=== PATIENT | male | born 1960 | race Caucasian/White ===

== ENCOUNTER 2016-12-21 07:55 | Day surgery (SDC) | payer OTHER ==
[~2016-12-21] VITALS: Ht 170.2 cm; Wt 74.8 kg
[~2016-12-21 07:55] MED LIST: ALLERCLEAR10 MG PO
--- NOTE | 2016-12-21 09:17 | NUR ---
PT IN GOOD ATTITUDE, HAS FAMILY SUPPORT, HIS IS WITH HIM, SHE IS ALSO IN GOOD ATTITUDE. HE REFUSED PRAYED, BUT WILLING TO TALK A FEW MINUTES.
--- NOTE | 2016-12-21 10:50 | NUR ---
12/21/16 1050 [facility] 1047: SAT 100, O2 REMOVED.
[2016-12-21] MEDS ORDERED: IBUPROFEN600 MG PO (10:55)
[2016-12-21] MEDS ORDERED: MAPAP325 MG PO (10:56)
[2016-12-21] MEDS ORDERED: HYDROCODON-ACE1 EA10 PO (10:56)
--- NOTE | 2017-01-01 10:25 | OR ---
[facility] [address] [place], [place] [address] Signed DATE OF SERVICE: 12/21/2016 PREOPERATIVE DIAGNOSIS: Left small finger 1.5 cm mass (dorsum at 2nd interphalangeal segment). POSTOPERATIVE DIAGNOSIS: Epidermal inclusion cyst of right small finger. PROCEDURE: Excision of finger mass. SURGEON: Andrés Garcia MD. ANESTHESIA: Intravenous sedation (Andry Benson) and local finger block 2 cc of 0.25% Marcaine without epinephrine and Beatrice tourniquet. INDICATION: This 56-year-old white man has noted a small mass in the dorsum of his right small finger which has been increasing in s ize over time. He is self-referred for consideration of excision. The lesion is relatively large, 1.5 to 2 cm in size, and located in the interphalangeal segment of the right small finger on the dorsal aspect. This may represent an epidermal inclusion cys t or an atypical ganglion. Discussed with him the risks of bleeding, infection, nerve injury, recurrence, and other unforeseen complications related to its removal and he wishes to proceed. FINDINGS: A Godfrey block was not necessary really. Exsanguination of the finger with a Beatrice drain and local anesthesia was quite adequate in conjunction with propofol sedation. Complete excision was undertaken. The excised lesion was an epidermal inclusion cyst. Complete excision was accomplished. The wound was closed transversely. DESCRIPTION OF PROCEDURE: The patient was brought to the operating room, was placed in a supine position. He was given intravenous sedation with full cardiopulmonary monitoring with propofol infusion. The right hand and arm were prepared with a chlorhexidine solution and draped sterilely. 2 cc of 0.25% Marcaine with epinephrine was injected in a finger block configuration in the mid finger. A 1-inch Awendaw drain was used to exsanguinate the small finger applying a tourniquet above the lesion. An elliptical incision was made in the central portion of the relatively large lesion and the epidermis was relatively thin. Immediate rupture of epidermal inclusion cyst under pressure was noted. Minimizing the contamination the skin and epidermal inclusion cyst were dissected free using tenotomy scissors from surrounding soft tissue of the finger. Complete excision was Electronically Signed By: ANDRÉS GARCIA MD 01/01/17 1025 PATIENT NAME: MARIA GUADALUPE MEJIA OPERATIVE REPORT DATE OF : 56 PHYSICIAN: ANDRÉS GARCIA MD REPORT #: [id number] REPORT IS CONFIDENTIAL AND NOT TO BE RELEASED WITHOUT AUTHORIZATION [facility] [address] [place], [place] [address] Signed accomplished. Irrigation was undertaken. A small amount of electrocautery with needlepoint electrocautery was used in the base of the wound w here there were blood vessels, although not bleeding or obviously potential for bleeding. The skin was closed with interrupted 5-0 nylon. A Xeroform dressing was applied, as was a tube gauze. The tourniquet was removed showing good hemostasis. Pressure wa s applied to this site. The patient was allowed to emerge from sedation and taken to recovery room in good condition. BLOOD LOSS: Minimal. COMPLICATIONS: None. MD STANTON Cohen/Quinten /[id number] Electronically Signed By: ANDRÉS GARCIA MD 01/01/17 1025 PATIENT NAME: ROBERTOMARIA GUADALUPE MONIK OPERATIVE REPORT DATE OF : 56 PHYSICIAN: ANDRÉS GARCIA MD REPORT #: [id number] REPORT IS CONFIDENTIAL AND NOT TO BE RELEASED WITHOUT AUTHORIZATION
== END 2016-12-21 11:33 | disposition home or self-care (01) ==
LOC: OPS 07:55 → DS 07:55 → OPS 09:30
PROVIDERS: Surgery
PROC: 0HBGXZZ Excision of Left Hand Skin, External Approach (ICD-10-PCS; principal; 2016-12-21 09:30)
DX: L72.0 Epidermal cyst (principal)
CPT/HCPCS: 00400; J0690; J3010; J7120

== ENCOUNTER 2024-08-25 20:22 | Inpatient (IN) | payer MEDICARE ==
[~2024-08-25] VITALS: Ht 170.2 cm; Wt 66.7 kg
[~2024-08-25 20:22] MED LIST changes: +HYDROCODON-ACE1 EA10 PO; +IBUPROFEN600 MG PO; +MAPAP325 MG PO
[2024-08-25 21:11] LABS: BILIRUBIN, URINE NEGATIVE (negative); BLOOD/HGB, URINE SMALL (Negative); KETONE, URINE NEGATIVE (Negative); LEUK ESTERASE, URINE NEGATIVE (negative); NITRITE, URINE NEGATIVE (negative)
[2024-08-25 21:25] LABS: HEMATOCRIT 35.2 % (35.0-50.0); HEMOGLOBIN 12.5 g/dL (12.0-18.0); MCH 30.7 (27-36); MCHC 35.3 g/dl (30-36); MCV 86.8 fl (81-99); PLATELET COUNT 65 K/uL (140-440); RBC 4.06 M/ul (4.3-5.7); RDW 13.7 (10.5-15.0)
[2024-08-25 21:29] LABS: BACTERIA, URINE 1+ /hpf (negative); COLLECTION TYPE, URINE CLEAN CATCH; CRYSTALS, URINE NONE SEEN (0-1+); EPITHELIAL CELLS, URINE SQUAMOUS 1+ /lpf (0-1+); REFLEX CULTURE, URINE No (No)
[2024-08-25 21:43] LABS: BANDS, MANUAL DIFF 6; EOSINOPHILS, MANUAL DIFF 2; LYMPHOCYTES, MANUAL DIFF 31; MONOCYTES, MANUAL DIFF 16; NEUTROPHILS, MANUAL DIFF 45
[2024-08-25 21:46] LABS: ALBUMIN 3.7 g/dL (3.4-5.0); ALBUMIN/GLOBULIN RATIO 1.06 (1.1-2.4); ANION GAP 9.9 (7-21); BILIRUBIN, TOTAL 0.7 mg/dL (0.2-1.0); POTASSIUM 3.9 mmol/L (3.5-5.1); PROTEIN, TOTAL 7.2 g/dL (6.4-8.2); TSH, 3RD GENERATION 4.584 uIU/mL (0.358-3.740)
[2024-08-25] MEDS ORDERED: ZOLEDRONIC AC/MANNITOL/0.9NACL 4 MG/100 ML BAG IV ONE (22:15)
[2024-08-25] MEDS ORDERED: SODIUM CHLORIDE 0.9% 1,000 ML IV PRN (22:15)
[2024-08-25] MEDS ORDERED: ACETAMINOPHEN 325 MG TAB PO PRN (22:30)
[2024-08-25] MEDS ORDERED: ondansetron HCL 4 MG/2 ML VIAL IV PRN (22:30)
[2024-08-25] MEDS ORDERED: SODIUM CHLORIDE 0.9% 1,000 ML IV SCH (22:30)
[2024-08-25] MEDS ORDERED: ZOLEDRONIC ACID/MANNITOL/WATER 5 MG/100 ML BTL ONE (22:32)
[2024-08-25] MEDS ORDERED: ZOLEDRONIC ACID/MANNITOL/WATER 5 MG/100 ML BTL IV ONE (23:00)
[2024-08-25] MEDS ORDERED: MULTI-DAY PLUS1 EAC1 PO (23:11)
[2024-08-25] MEDS ORDERED: MILK OF MA2400 MG/10 PO (23:11)
[2024-08-25] MEDS ORDERED: DULCOLAX STOOL100 M1 PO (23:11)
[2024-08-25] MEDS ORDERED: FAMOTIDINE 20 MG/ 2 ML VIAL IV ONE (23:45)
[2024-08-25 23:56] VITALS: BP 149/83
--- NOTE | 2024-08-26 00:13 | NUR ---
2352 - PT ADMITTED TO ROOM 119 VIA W/C FROM ER. AWAKE, ALERT AND ORINETED, HELPED WITH TRANSFER. COOPERATIVE WITH ADMIT QUESTIONS AND ASSESSMENT, ORIENTED TO ROOM AND PROCEDURES
--- NOTE | 2024-08-26 02:51 | NUR ---
PT RESTING IN BED, SLEEPY BUT ALERT. DENIES PRESENT NEEDS, CALL LIGHT IN REACH AND BED ALARM ACTIVE
--- NOTE | 2024-08-26 04:21 | NUR ---
PT ALERT IN ROOM, REPORTS DIFFICULTY SLEEPING D/T AMBIENT LIGHT AND NOISE. DECLINES OFFER FOR EAR PLUGS/ EYE MASK. REPORTS PAIN IS MINIMAL UNTIL HE MOVES. DECLINES PAIN MEDICATION OR OTHER INTERVENTIONS AT THIS TIME. NO OTHER NEEDS IDENTIFIED. [facility]
[2024-08-26 04:56] VITALS: BP 119/80
[2024-08-26 04:58] VITALS: BP 119/80
--- NOTE | 2024-08-26 05:02 | NUR ---
RESPONDED TO BEEPING IV, VITALS. DECLINES FURTHER NEEDS AT THIS TIME CALL LIGHT IN REACH
[2024-08-26 05:11] LABS: BASOPHILS 0.6 % (0-2); EOSINOPHILS 2.4 % (0-6); HEMATOCRIT 32.7 % (35.0-50.0); HEMOGLOBIN 11.3 g/dL (12.0-18.0); LYMPHOCYTES 25.2 % (24-44); MCH 29.9 (27-36); MCHC 34.6 g/dl (30-36); MCV 86.3 fl (81-99); MONOCYTES 14.5 % (0-12); NEUTROPHILS 57.3 % (39-80); PLATELET COUNT 57 K/uL (140-440); RDW 13.8 (10.5-15.0)
[2024-08-26 05:29] LABS: ALBUMIN 3.1 g/dL (3.4-5.0); ALBUMIN/GLOBULIN RATIO 1.03 (1.1-2.4); ANION GAP 5.8 (7-21); BILIRUBIN, TOTAL 0.6 mg/dL (0.2-1.0); BUN/CREATININE RATIO 10.16 (6.0-28.6); CALCIUM 12.9 mg/dL (8.5-10.1); CREATININE, SERUM 1.87 mg/dL (0.70-1.30); POTASSIUM 3.8 mmol/L (3.5-5.1); PROTEIN, TOTAL 6.1 g/dL (6.4-8.2)
--- NOTE | 2024-08-26 07:09 | NUR ---
VERBAL REPORT RECEIVED FROM TAWNYA ZHAO. PT RESTS IN BED AWAKE AND ALERT. NO REQUESTS AT THIS TIME.
--- NOTE | 2024-08-26 07:12 | NUR ---
medications recoinciled, patient takes no prescription medications
--- NOTE | 2024-08-26 08:25 | NUR ---
PHYSICAL ASSESSMENT COMPLETE. PT SITS UP ON BEDSIDE. EATS BREAKFAST, CALL LIGHT IN REACH, NO REQUESTS AT THIS TIME.
[2024-08-26 10:00] VITALS: BP 116/72
[2024-08-26] MEDS ORDERED: POLYETHYLENE GLYCOL 3350 1 PACKET PO SCH (11:56)
[2024-08-26] MEDS ORDERED: PHARMACY RENAL DOSE ADJUSTMENT 1 DOSE MISC PO SCH (12:00)
[2024-08-26] MEDS ORDERED: ACETAMINOPHEN 325 MG TAB PO PRN (12:00)
[2024-08-26] MEDS ORDERED: ondansetron HCL 4 MG/2 ML VIAL IV PRN (12:00)
[2024-08-26] MEDS ORDERED: bisacodyL 10 MG SUPP PR PRN (12:00)
[2024-08-26 13:14] VITALS: BP 122/65
--- NOTE | 2024-08-26 13:50 | NUR ---
SISTER IN LAW CAME OUT AND SAID THAT THEY FELT THE PT WAS SLURRING HIS WORDS. WENT IN ROOM TO ASSESS. PT AND GIRLFRIEND STATED IT IS WHEN HE IS TIRED AND HAS BEEN HAPPENING FOR A COUPLE OF DAYS. ASSESSED FOR STROKE SYMPTOMS, ALL NEGATIVE. EDUCATED PT ON SYMPTOMS AND TOLD TO CALL IF ANY APPEAR.
--- NOTE | 2024-08-26 16:28 | NUR ---
PT RESTS IN BED, WATCHES TV, VISITOR X1 AT BEDSIDE. PT REPORTS HE IS AMBULATING FREQUENTLY TO VOID. CALL LIGHT IN REACH, NO REQUESTS AT THIS TIME.
[2024-08-26 17:53] VITALS: BP 116/69
--- NOTE | 2024-08-26 19:56 | NUR ---
RECEIVED REPORT, PT RESTING IN BED. DENIES NEEDS PRESENTLY, CALL LIGHT IN REACH
[2024-08-26] MEDS ORDERED: MELATONIN 3 MG TAB PO PRN (21:00)
[2024-08-26] MEDS ORDERED: TRAZODONE HCL 50 MG TAB PO PRN (21:00)
[2024-08-26 21:16] VITALS: BP 121/65
--- NOTE | 2024-08-26 21:28 | NUR ---
SCD MACHINE ALARMING, pt REMOVED, COMPLAINS OF DISCOMFORT. PRN TYLENOL ADMINISTERED. pt STATES "ITS ONLY REALLY WHEN I MOVE, BUT I'M SORE ALL OVER." PRN SLEEP MEDICATION ADMINISTERED. VSS. URINAL EMPTIED. CALL LIGHT IN REACH.
--- NOTE | 2024-08-26 22:12 | NUR ---
ASSESSMENT. PT EXPRESSES FEELING DEPRESSED TODAY AFTER LEARNING OF HIS DIAGNOSIS. DISCUSSED WITH PT THE NEWS THAT HE WILL LIKELY TRANSFER TO A DIFFERENT HOSPITAL. HE EXPRESSES WORRY ABOUT HIS LIFE HERE, STATING HE HAS 'BILLS TO PAY, A LAWN TO MOW. A LOT OF STUFF I HAVE TO DO BEFORE SEPTEMBER 11.' VALIDATED PT FEELINGS OF SHOCK AND WORRY WITH THE NEW DIAGNOSIS. CALL DEBORAH SHI
[2024-08-27] VITALS (7 sets, daily range): BP systolic 111–117; BP diastolic 64–72
--- NOTE | 2024-08-27 01:52 | NUR ---
RESPONDED TO TELEMONITOR LOSING SIGNAL. PT UPRIGHT IN BED SEARCHING FOR CORD HE DROPPED, NO ACUTE DISTRESS. REPLACED IV FLUIDS. NO NEEDS PRESENTLY, CALL NOREEN LUND
--- NOTE | 2024-08-27 04:29 | NUR ---
PT RESTING WITH EYES CLOSED, RISE AND FALL OF CHEST NOTED. CALL LIGHT IN REACH
[2024-08-27 05:20] LABS: HEMATOCRIT 29.1 % (35.0-50.0); MCH 29.9 (27-36); MCHC 34.4 g/dl (30-36); RBC 3.34 M/ul (4.3-5.7); RDW 13.9 (10.5-15.0)
[2024-08-27 05:36] LABS: ALBUMIN 2.8 g/dL (3.4-5.0); ANION GAP 10.9 (7-21); BILIRUBIN, TOTAL 0.5 mg/dL (0.2-1.0); BUN/CREATININE RATIO 11.29 (6.0-28.6); CALCIUM 10.4 mg/dL (8.5-10.1); CREATININE, SERUM 1.77 mg/dL (0.70-1.30); MAGNESIUM 1.8 mg/dL (1.8-2.4); PHOSPHORUS, INORGANIC 2.9 mg/dL (2.5-4.9); POTASSIUM 3.9 mmol/L (3.5-5.1); PROTEIN, TOTAL 5.6 g/dL (6.4-8.2)
[2024-08-27 05:42] LABS: PLATELET COUNT 41 K/uL (140-440)
[2024-08-27 05:52] LABS: BANDS, MANUAL DIFF 7; EOSINOPHILS, MANUAL DIFF 1; LYMPHOCYTES, MANUAL DIFF 21; MONOCYTES, MANUAL DIFF 11; NEUTROPHILS, MANUAL DIFF 57
--- NOTE | 2024-08-27 06:46 | NUR ---
NOTIFIED OF PLATELETS 41.
--- NOTE | 2024-08-27 07:34 | NUR ---
VERBAL REPORT RECEIVED FROM TAWNYA ZHAO. PT AWAKE AND ALERT IN ROOM. USES URINAL TO VOID. NO REQUESTS AT THIS TIME.
[2024-08-27 07:48] LABS: CALCIUM IONIZED PH 7.4 1.85 mmol/L (1.09-1.30); CALCIUM,IONIZED SERUM 1.76 mmol/L (1.09-1.30)
[2024-08-27] MEDS ORDERED: FUROSEMIDE 40 MG/4 ML VIAL IV ONE (08:15)
[2024-08-27 08:29] LABS: THYROXINE FREE 1.8 ng/dL (0.9-1.7)
--- NOTE | 2024-08-27 08:43 | NUR ---
PATIENT IN BED AT THIS TIME. HAND GLASS CUTTER CHARTED HOURLY ROUNDS. CALL LIGHT WITHIN REACH, NO FURTHER NEEDS AT THIS TIME.
--- NOTE | 2024-08-27 09:22 | NUR ---
Pt was discussed in 829 meeting. would like pt scheduled for OP karen. I called [facility] the [facility]. Pt must go through his PCP to have this scheduled and then they will send pts chart. I will discuss with pt as chart is showing he does not have a pcp.
[2024-08-27] MEDS ORDERED: FUROSEMIDE 20 MG/2 ML VIAL IV ONE (09:45)
--- NOTE | 2024-08-27 10:00 | NUR ---
Pt [facility]. Pt wanting to establish and hospitalist also would like pt to have a bone marrow test. Pt must go through his pcp per two hospitals I spoke with. Notified Saul in the Clinic of need for a pcp lukasz.
--- NOTE | 2024-08-27 10:16 | NUR ---
PATIENT IN BED AT THIS TIME. PIPE ROLLER CHARTE VITALS AND I&O'S. CALL LIGHT WITHIN REACH, NO FURTHER NEEDS AT THIS TIME.
--- NOTE | 2024-08-27 12:30 | NUR ---
NEW BAG OF IVF INFUSING.
--- NOTE | 2024-08-27 13:14 | NUR ---
UR CLINICAL REVIEW: 2MN REJIS, MEETS INPT FOR HYPERCALCEMIA TREND LABS, IV FLUIDS, MRI MEDICARE INPT 08/27/2024 @ 0857 ORDER MATCHES REG NO AUTH REQUIRED PER MEDICARE RULES DC PLAN PENDING FURTHER EVALUATION, LIKELY HOME IN 1-2 DAYS.
--- NOTE | 2024-08-27 13:22 | NUR ---
PATIENT IN BED AT THIS TIME. VENETIAN BLIND MAKER CHARTED VITALS AND I&O'S. CALL LIGHT WITHIN REACH, NO FURTHER NEEDS AT THIS TIME.
[2024-08-27 13:28] LABS: VITAMIN D 25 OH 43 ng/mL (30-80)
--- NOTE | 2024-08-27 14:00 | NUR ---
Notified by Saul at the Clinic. Pt has an appt with Dr. Mathur on
[2024-08-27 14:38] LABS: PARATHYROID HORMONE,INTACT 8 pg/mL (15-65)
--- NOTE | 2024-08-27 15:36 | NUR ---
PT RESTS IN BED, AWAKE AND ALERT. VISITOR X1 AT BEDSIDE. DR. FORD IN ROOM, SPEAKS TO PT ABOUT MRI AND POC. ICE WATER PROVIDED PER PT REQUEST. NO FURHTER NEEDS AT THIS TIME.
--- NOTE | 2024-08-27 16:03 | NUR ---
PT LEAVES FLOOR TO IMAGING FOR MRI.
--- NOTE | 2024-08-27 16:44 | NUR ---
PT RETURNS TO MED-SURG ROOM 119, BACK FROM IMAGING PROCEDURE.
--- NOTE | 2024-08-27 17:59 | NUR ---
PATIENT IN BED AT THIS TIME. APPLICATION PERFORMANCE ENGINEER CHARTED VITALS AND I&O'S. CALL LIGHT WITHIN REACH, NO FURTHER NEEDS AT THIS TIME.
--- NOTE | 2024-08-27 18:35 | NUR ---
PT RESTS IN BED, AWAKE AND ALERT, VISIT X1 AT BEDSIDE. IV INTACT, NO REDNESS OR SWELLING NOTED. NS INFUSING. NO REQUESTS AT THIS TIME.
--- NOTE | 2024-08-27 19:25 | NUR ---
REPORT RECEIVED FROM DAY SHIFT RN. PT LYING IN BED ALERT AND ORIENTED. DENIES NEEDS. WHITE BOARD UPDATED. CALL LIGHT IN REACH.
--- NOTE | 2024-08-27 21:44 | NUR ---
EVENING ASSESSMENT COMPLETE. PT REPORTS BACK/FLANK PAIN 09/06. PRN FOR PAIN AND SLEEP ADMIN PER EMAR. VS AND I&O OBTAINED. TELE #[address] HR 80'S. SR. PT REFUSING SCD'S. EDUCATION PROVIDED, PT VERBALIZES UNDERSTANDING. PT DENIES QUESTIONS OR CONCERNS. CALL LIGHT IN REACH.
--- NOTE | 2024-08-27 23:45 | NUR ---
PT RESTING IN BED WITH EYES CLOSED. RESPIRATIONS EVEN. CALL LIGHT IN REACH.
[2024-08-28 02:13] VITALS: BP 101/61
--- NOTE | 2024-08-28 02:38 | NUR ---
PT RESTING IN BED WITH EYES CLOSED. RESPIRATIONS EVEN. CALL LIGHT IN REACH.
[2024-08-28 05:52] VITALS: BP 106/60
[2024-08-28 05:55] LABS: HEMATOCRIT 27.7 % (35.0-50.0); HEMOGLOBIN 9.6 g/dL (12.0-18.0); MCH 30.2 (27-36); MCHC 34.8 g/dl (30-36); MCV 86.9 fl (81-99); RBC 3.19 M/ul (4.3-5.7); RDW 13.8 (10.5-15.0)
--- NOTE | 2024-08-28 06:03 | NUR ---
LAB IN FOR MORNING DRAW. VS AND I&O OBTAINED. PT DENIES PAIN AT REST. REPORTS BACK/FLANK PAIN WITH MOVEMENT. DENIES PRN FOR PAIN WHEN OFFERED. NO NEEDS AT THIS TIME. CALL LIGHT IN REACH.
[2024-08-28 06:04] VITALS: BP 106/60
[2024-08-28 06:14] LABS: ALBUMIN 2.7 g/dL (3.4-5.0); ALBUMIN/GLOBULIN RATIO 0.93 (1.1-2.4); ANION GAP 11.7 (7-21); BILIRUBIN, TOTAL 0.5 mg/dL (0.2-1.0); BUN/CREATININE RATIO 10.36 (6.0-28.6); CALCIUM 9.3 mg/dL (8.5-10.1); CREATININE, SERUM 1.64 mg/dL (0.70-1.30); MAGNESIUM 2.1 mg/dL (1.8-2.4); POTASSIUM 3.7 mmol/L (3.5-5.1); PROTEIN, TOTAL 5.6 g/dL (6.4-8.2)
[2024-08-28 06:27] LABS: LYMPHOCYTES, MANUAL DIFF 43; MONOCYTES, MANUAL DIFF 3; NEUTROPHILS, MANUAL DIFF 54
[2024-08-28 06:30] LABS: PLATELET COUNT 40 K/uL (140-440)
--- NOTE | 2024-08-28 08:07 | NUR ---
VERBAL REPORT RECEIVED FROM TAWNYA SCOTT. PT RESTS IN BED AWAKE. CALL LIGHT IN REACH, NO REQUESTS AT THIS TIME.
[2024-08-28] MEDS ORDERED: SENNOSIDES/DOCUSATE 1 EA TAB PO SCH (09:00)
[2024-08-28 09:27] VITALS: BP 109/61
[2024-08-28] MEDS ORDERED: TRAZODONE HCL50 MG PO (09:55)
--- NOTE | 2024-08-28 11:00 | NUR ---
Spoke with Florentin. He is ready to dc. Reviewed he is scheduled to see Dr. Mathur tomorrow. Dr. Mathur will assist him with scheduling a bone marrow procedure.
--- NOTE | 2024-08-28 11:00 | NUR ---
DISCUSSED DISCHARGE INSTRUCTIONS WITH PT, PT VERBALIZES UNDERSTANDING. IV REMOVED, TIP INTACT, GAUZE AND COBAN DRESSING APPLIED TO SITE, PT TOLERATED WELL. VSS. PT DRESSES SELF. PT GATHERS BELONGINGS. PT LEAVES UNIT AMBULATORY ESCORTED BY YOHAN CORTEZ, TO PRIVATE CAR DRIVEN BY FRIEND.
[2024-08-28 16:21] LABS: BETA-2-MICROGLOBULIN,SER/PLAS 7.6 mg/L (<=3.0)
[2024-08-28 21:35] LABS: KAPPA QNT FREE LIGHT CHAINS 6.07 mg/L (3.30-19.40); KAPPA/LAMBDA FREE LIGHT CH RAT <0.01 (0.26-1.65); LAMBDA QNT FREE LIGHT CHAINS 5558.92 mg/L (5.71-26.30)
[2024-08-29 10:14] LABS: ALBUMIN 3.39 g/dL (3.75-5.01); ALPHA 1 GLOBULIN 0.25 g/dL (0.19-0.46); ALPHA 2 GLOBULIN 0.66 g/dL (0.48-1.05); BETA GLOBULIN 0.91 g/dL (0.48-1.10); IMMUNOFIXATION REFLEX IFE Done (()); TOTAL PROTEIN,SERUM 6.2 g/dL (6.3-8.2)
[2024-08-29 10:16] LABS: IMMUNOGLOBULIN A 44 mg/dL (68-408); IMMUNOGLOBULIN G 656 mg/dL (768-1632); IMMUNOGLOBULIN M 28 mg/dL (35-263)
[2024-08-30 02:27] LABS: PTHRP BY LC-MS/MS,PLASMA 2.9 pmol/L (0.0-2.3)
== END 2024-08-28 11:00 | disposition home or self-care (01) | DRG 641 ==
LOC: ED 20:22 → MS 20:24
PROVIDERS: Internal Medicine; ADMIT Student in an Organized Health Care Education/Training Program; ATTEND Student in an Organized Health Care Education/Training Program
DX: E83.52 Hypercalcemia (principal); N17.9 Acute kidney failure, unspecified; C90.00 Multiple myeloma not having achieved remission; D69.6 Thrombocytopenia, unspecified; D64.9 Anemia, unspecified; M54.50 Low back pain, unspecified; N50.89 Other specified disorders of the male genital organs
CPT/HCPCS: 36415; 51798; 70553; 72158; 74176; 80053; 81001; 82232; 82306; 82652; 83615; 83735; 83970; 84100; 84153; 84439; 84443; 85025; 96361; 96374; 96375; 99285-25; A9270; A9579; G0378; J1940; J3489; J7030

== ENCOUNTER 2024-09-05 10:30 | Day surgery (SDC) | payer MEDICARE ==
[2024-09-04 10:55] VITALS: BP 127/83
[~2024-09-05] VITALS: Ht 170.2 cm; Wt 70.9 kg
[~2024-09-05 10:30] MED LIST changes: +DULCOLAX STOOL100 M1 PO; +HYDROCODON-ACE1 EA11 PO; +IBLOOD GLUCOSE TEST STRIP 1 EA TEST VI PRN; +LACTATED RINGER'S 1,000 ML IV SCH; +LIDOCAINE HCL 1% 5 ML SDV INJ ONE; +MIDAZOLAM HCL 5 MG/5 ML VIAL IV PRN; +MILK OF MA2400 MG/10 PO; +MULTI-DAY PLUS1 EAC1 PO; +TRAZODONE HCL50 MG PO; +fentaNYL citrate 100 MCG/2 ML VIAL IV PRN
[2024-09-05 11:06] VITALS: BP 101/61
[2024-09-05 11:07] LABS: BASOPHILS, ABSOLUTE 0.1 %; EOSINOPHILS, ABSOLUTE 0.1; HEMATOCRIT 26.4 % (35.0-50.0); HEMOGLOBIN 9.3 g/dL (12.0-18.0); LYMPHOCYTES, ABSOLUTE 1.2; MCH 30.4 (27-36); MCHC 35.3 g/dl (30-36); MCV 86.2 fl (81-99); MONOCYTES, ABSOLUTE 0.6; NEUTROPHILS, ABSOLUTE 3.7; RBC 3.06 M/ul (4.3-5.7); RDW 14.2 (10.5-15.0)
[2024-09-05 11:23] LABS: PLATELET COUNT 42 K/uL (140-440)
[2024-09-05 11:28] LABS: ALBUMIN 3.2 g/dL (3.4-5.0); ALBUMIN/GLOBULIN RATIO 0.97 (1.1-2.4); ANION GAP 14.4 (7-21); BILIRUBIN, TOTAL 0.8 mg/dL (0.2-1.0); BUN/CREATININE RATIO 12.34 (6.0-28.6); CALCIUM 8.1 mg/dL (8.5-10.1); CREATININE, SERUM 1.62 mg/dL (0.70-1.30); POTASSIUM 4.4 mmol/L (3.5-5.1); PROTEIN, TOTAL 6.5 g/dL (6.4-8.2)
[2024-09-05 11:34] LABS: BANDS, MANUAL DIFF 6; EOSINOPHILS, MANUAL DIFF 3; LYMPHOCYTES, MANUAL DIFF 25; MONOCYTES, MANUAL DIFF 14; NEUTROPHILS, MANUAL DIFF 47; OTHER, MANUAL DIFF 1
[2024-09-05] MEDS ORDERED: LIDOCAINE HCL 2% 5 ML SDV ONE (11:50)
[2024-09-05] MEDS ORDERED: propofoL 200 MG/20 ML VIAL ONE (11:50)
--- NOTE | 2024-09-05 12:23 | NUR ---
09/05/24 Chung3 Penny Avalos 1218-PATIENT ARRIVED TO PACU ON 6L MASK RR EVEN. NONAROUSABLE PATIENT LAYING PRONE SR HR 90'S. BANDAIDS TO LEFT AND RIGHT SIDE OF BACK INTACT. IVF INFUSING
[2024-09-05 13:00] VITALS: BP 118/78
--- NOTE | 2024-09-07 14:16 | PATH ---
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 - Marked thrombocytopenia. Bone marrow, aspirate, cell block of clotted aspirate, core biopsy: - Morphologic features consistent with multiple myeloma. - See diagnostic comment. DIAGNOSTIC COMMENT: Patient clinical history of multiple myeloma is noted. The current study demonstrates markedly cellular bone marrow with extensive involvement by neoplastic population of plasma cells comprising more than 90% of the marrow cellularity. Concurrent flow cytometry also identified monotypic population of plasma cells. Overall findings are consistent with multiple myeloma. PERIPHERAL BLOOD: Hemogram ([facility] [place] [facility], 09/05/2024): WBC 4.5K/UL, RBC 3.06M/UL, hemoglobin 9.7 g/DL, hematocrit 26.4%, MCV 86.2 FL, MCH 30.4 PG, MCHC 35.3 g/DL, RDW 14.2%, platelets 42K/UL. Peripheral blood differential: 47% neutrophils, 25% lymphocytes, 14% monocytes, 3% eosinophils 6% bands, 3% metamyelocytes and 1% myelocytes. Review of peripheral blood smear and CBC data demonstrate that RBCs are decreased in number with moderate normocytic normochromic anemia present. Mild rouleaux formation is noted. Occasional nucleated RBCs are seen. The WBCs are normal in number. The granulocytes show shift toward immaturity including occasional myelocytes. No blasts are seen. The platelets are markedly decreased in number with unremarkable morphology. BONE MARROW: Bone marrow aspirate smears: The bone marrow aspirate smears are hypocellular with no bone marrow particles present. Scattered neutrophils and occasional plasma cells are seen. PATIENT NAME: MARIA GUADALUPE MEJIA PATHOLOGY DATE OF : 56 REPORT #: [id number] PHYSICIAN: ANDREIA PATHOLOGY PCP: NO PRIMARY CARE PHYSICIAN REPORT IS CONFIDENTIAL AND NOT TO BE RELEASED WITHOUT AUTHORIZATION [facility] [address] [place], [place] [address] Signed Bone marrow core biopsy: The bone marrow core biopsy is markedly hypercellular approaching 100% cellularity. More than 90% of the cellularity is composed of plasma cells. There are no lymphoid aggregates or granulomas seen. Rare megakaryocytes are seen. Special stains: Performed with appropriately reactive control and show the following results.: Iron (aspirate smears): Absent, no bone marrow particles. Iron (block B1): Absent Reticulin (block A1): Moderate to marked increase in bone marrow reticulin fibrosis (MF 2�3). Immunohistochemical stains: Performed on block A1 with appropriately reactive control and show the following results: CD138: Positive in plasma cells more than 90%. MAURICE [place]/lambda: Lambda monotypic pattern. PAX5: Negative CD34: No increase in blasts. FLOW CYTOMETRY: Bone marrow aspirate, flow cytometry: - Monotypic plasma cell population detected. - No atypical B or T-cell population detected. - No increase in blasts. - See Comment. COMMENT: About 9.5% of total events are lambda-monotypic plasma cells. Correlation with clinical and histologic findings is needed for further characterization of this patient's plasma cell dyscrasia. Flow cytometry analysis often underestimates the amount of plasma cells. FLOW CYTOMETRY ANALYSIS: FLOW DIFFERENTIAL (% Total CD45 vs. SSC gating): Myeloid 65%; Lymphoid 12%; Monocyte 4%; Dim CD45/Blast: 2.0%. Cell Count: 4.2 x 10*3/uL. POPULATION ANALYSIS: BLASTS: Analysis of the dim CD45 gate demonstrates 2.0% myeloblasts by CD34/CD117. LYMPHOID CELLS: The lymphocyte gate comprises 12% of total events and includes 72% T-cells with a CD4:CD8 ratio of 4.1:1 and normal mueller T-cell antigen expression. 9% of lymphocytes are polyclonal B-cells with a kappa:lambda ratio of 1.3:1. The remainders are NK-cells. MYELOID CELLS: The myeloid population comprises 65% of the total events. No aberrant immunophenotypic expression is detected. PATIENT NAME: MARIA GUADALUPE MEJIA PATHOLOGY DATE OF : 56 REPORT #: [id number] PHYSICIAN: ANDREIA PATHOLOGY PCP: NO PRIMARY CARE PHYSICIAN REPORT IS CONFIDENTIAL AND NOT TO BE RELEASED WITHOUT AUTHORIZATION [address] [address] Signed MONOCYTES: The monocyte population comprises 4% of the total events. Monocytes are not increased. No aberrant immunophenotypic expression is detected. PLASMA CELLS: A clinical concern for myeloma is noted. For this reason, select additional antibodies are run to further characterize the plasma cells. 9.5% clambda-restricted plasma cells are detected (n=4,609) expressing CD45 DIM-NEG, CD38 MOD-BR, CD138 DIM, CD56 DIM (partial), and cLAMBDA BR while negative for CD19, CD20, and CD117. Initial Antibodies Used: KAPPA, LAMBDA, CD20, CD10, CD19, CD23, CD38, CD16, CD56, CD8, CD5, CD2, CD4, CD7, CD3, CD14, CD33, CD13, HLADR, CD34, CD117, CD15, CD45. Additional Antibodies (necessary for further plasma cell analysis): ckappa, clambda, CD138. Total Antibodies Used: 26. JNB FINAL DIAGNOSIS PERFORMED BY: Deidre Eller MD, Sep 06 2024 4:47PM CYTOGENETICS: Pending FISH ANALYSIS: Pending GROSS DESCRIPTION: Two specimens are received in two containers A. The specimen, labeled and designated "Roberto, left bone marrow core biopsy," is received in formalin and consists of a red-brown core of bone (2.4 cm in length by up to 0.2 cm in diameter). The specimen is submitted entirely in cassette (A1) following decalcification in Immunocal. B. The specimen, labeled and designated "Roberto, bone marrow clot biopsy," is received in formalin and consists of a portion of red-brown clot-like material (1.3 x 1.0 x 0.3 cm in aggregate). The specimen is submitted entirely in cassette (B1). VB (under the direct supervision of a pathologist) The Gross Description was prepared using a voice recognition system. The report was reviewed for accuracy; however, sound-alike word errors, addition and/or deletions may occur. If there is any question about this report, please contact Client Services. ADDITIONAL NOTES: Immunohistochemical and/or in situ hybridization studies if performed in this PATIENT NAME: ROBERTOMARIA GUADALUPE PATHOLOGY DATE OF : 56 REPORT #: [id number] PHYSICIAN: ANDREIA MADRIGAL PCP: NO PRIMARY CARE PHYSICIAN REPORT IS CONFIDENTIAL AND NOT TO BE RELEASED WITHOUT AUTHORIZATION [facility] [address] [place], [place] [address] Signed case included appropriate positive controls that reacted as expected. This test was developed and its performance characteristics determined by [facility]. It has not been cleared or approved by the U.S. Food and Drug Administration. The FDA has determined that such clearance or approval is not necessary. This test is used for clinical purposes. It should not be regarded as investigational or for research. [facility] is certified under the Clinical Laboratory Improvement Amendments of 1988 (CLIA) as qualified to perform high complexity clinical laboratory testing. In this case, certain antibodies were performed by both immunohistochemistry and flow cytometry analysis because flow cytometry analysis did not fully explain all the light microscopic findings. Immunohistochemistry aided in the analysis. Both methods are deemed medically necessary in this case. Immunohistochemical and/or in situ hybridization studies if performed in this case included appropriate positive controls that reacted as expected. This test was developed and its performance characteristics determined by [facility]. It has not been cleared or approved by the U.S. Food and Drug Administration. The FDA has determined that such clearance or approval is not necessary. This test is used for clinical purposes. It should not be regarded as investigational or for research. [facility] is certified under the Clinical Laboratory Improvement Amendments of 1988 (CLIA) as qualified to perform high complexity clinical laboratory testing. PERFORMING LABORATORY: The technical preparation was performed by [facility], [address] [place] [address] (CLIA#:� [id number]). Professional interpretation was performed by [facility], [address] [place] [id number] (CLIA# [id number]). Technical component was performed by [facility], [address] [place] [id number] (CLIA# [id number]). Professional interpretation was performed by [facility] - [facility], [address] [place] [address] (CLIA#: [id number]). IMAGES: [id number]: [id number]: [id number] PATIENT NAME: MARIA GUADALUPE MEJIA PATHOLOGY DATE OF : 56 REPORT #: [id number] PHYSICIAN: ANDREIA MADRIGAL PCP: NO PRIMARY CARE PHYSICIAN REPORT IS CONFIDENTIAL AND NOT TO BE RELEASED WITHOUT AUTHORIZATION [facility] [address] [facility] [place] [address] Signed Diagnostician: Deidre Eller MD Pathologist Electronically Signed 09/07/2024 Copies: ~ PATIENT NAME: MARIA GUADALUPE MEJIA PATHOLOGY DATE OF : 56 REPORT #: [id number] PHYSICIAN: ANDREIA MADRIGAL PCP: NO PRIMARY CARE PHYSICIAN REPORT IS CONFIDENTIAL AND NOT TO BE RELEASED WITHOUT AUTHORIZATION
== END 2024-09-05 13:05 | disposition home or self-care (01) ==
LOC: DS 10:30
PROVIDERS: ATTEND Specialist
PROC: 079T3ZX Drainage of Bone Marrow, Percutaneous Approach, Diagnostic (ICD-10-PCS; principal; 2024-09-05 12:00)
DX: C90.00 Multiple myeloma not having achieved remission (principal); Z79.899 Other long term (current) drug therapy; G89.3 Neoplasm related pain (acute) (chronic)
CPT/HCPCS: 01112; 36415; 80053; 83615; 85007; 85025; J2003; J2704; J7121